=== PATIENT | male | born 1975 | race Caucasian/White ===

== ENCOUNTER 2024-08-19 09:39 | Emergency (ER) | payer BC, SELFPAY ==
[2024-08-19 09:40] VITALS: BP 134/87; PULSE 87; RESP 18; TEMP 36.7; O2SAT 98
[2024-08-19 09:57] VITALS: BP 134/87; PULSE 87; RESP 18; TEMP 36.7; O2SAT 98
--- NOTE | 2024-08-19 11:01 | W.ED.GENAD ---
Discharge Plan Disposition Patient Disposition: Home Discharge Details Clinical Impression: Corneal abrasion, Keratitis Primary Care Provider: Milana,Local ED Provider: Edita Kim Home Meds and New Rx's Prescriptions: Continued escitalopram oxalate 10 mg tablet 10 mg PO DAILY Discharge Instructions Instructions: Corneal Abrasion ED Additional Instructions: Please go directly to [address] Let the front counter clerk know you are here post emergency department visit Please return should you have new or worsening complaints Concern for possible keratitis and a very small corneal abrasion. however, given your recent cataract surgery and complex history including sarcoidosis I think it is prudent to have you evaluated by ophthalmology. Discharge Data Discharge Date/Time-TO BE ENTERED AT DEPARTURE: 08/19/24 11:22 HPI General Date/Time Provider Initiated Documentation: 08/19/24 10:22. HPI Narrative: This 49-year-old male with history of sarcoidosis and lungs and presenting in bilateral eyes presents with report of injury on Monday while hunting. He thought a branch hit the corner of his eye. He has had pain and drainage with injection since that time. Worse with blinking. Denies significant light sensitivity. Does not take immunosuppressive's for sarcoidosis. Initial presentation of sarcoidosis with uveitis per patient. Related Data Home Medications ?Medication ?Instructions ?Recorded ?Confirmed escitalopram oxalate 10 mg tablet 10 mg PO DAILY 08/19/24 08/19/24 Allergies Allergy/AdvReac Type Severity Reaction Status Date / Time No Known Allergies Allergy Unverified 08/19/24 10:04 General Stated Complaint: EyeProblem CORNELIO: 3 Exam Narrative Exam Narrative: Alert and oriented 49-year-old gentleman in no acute distress with injected cornea and conjunctiva, punctate uptake throughout cornea, small abrasion in the 1 o'clock position, mildly constricted pupil on the left slower to respond. Lids everted without evidence of foreign body. Negative Sg sign. Course Vital Signs Vital signs: Vital Signs Temperature 36.7 C 08/19/24 09:40 Pulse 87 08/19/24 09:40 Respiratory Rate 18 08/19/24 09:40 Blood Pressure 134/87 08/19/24 09:40 Pulse Oximetry 98 08/19/24 09:40 Temperature 36.7 C 08/19/24 09:57 Temperature Source Temporal Artery Scan 08/19/24 09:57 Pulse 87 08/19/24 09:57 Respiratory Rate 18 08/19/24 09:57 Respiratory Effort Normal, Non-Labored 08/19/24 10:03 Blood Pressure 134/87 08/19/24 09:57 Blood Pressure Position Sitting 08/19/24 09:40 Pulse Oximetry 98 08/19/24 09:57 Oxygen Delivery Method Room Air 08/19/24 09:57 Oxygen Flow Rate 0 08/19/24 09:57 Pain Level 5 08/19/24 09:57 Medical Decision Making 49-year-old gentleman with recent cataract surgery and complex history including that of sarcoidosis which presented with uveitis. Patient is visiting from [place] and given pain and injection of his left eye presents for assessment. Concern for possible keratitis with a small corneal abrasion. He is staying in [place] until 1130 and I think ophthalmology assessment given complexities of sarcoidosis and prior history is warranted at this time. I think patient will likely need an antibiotic but as [facility] is able to see patient today on 08/19/2024,i think it's reasonable to defer for ophthalmology recommendations. visual acuity reviewed. Patient discharged to [facility] at this time. Quality:SDOH Health Related Social Needs: No Data to Display PFSH All Active Problems (Updated 08/19/24 @ 11:03 by YOSVANY Jackson) Keratitis (Acute) Corneal abrasion (Acute) Social History Smoking/Tobacco Use Status: Never Smoking risk assessment performed?: Yes Alcohol Intake: never Substance use type: does not use
[2024-08-19] MEDS: Fluorescein STRIPS 100/BOX 1 MG (11:15)
[2024-08-19] MEDS: Tetracaine 0.5% 4 ML BTL (11:16)
[2024-08-19 11:17] VITALS: BP 148/99; PULSE 71; RESP 18; TEMP 36.6; O2SAT 99
--- NOTE | 2024-08-19 11:36 | NUR.NOTE ---
Provider note faxed to [facility] for continuing care. Nursing Note:
== END 2024-08-19 11:22 | disposition home or self-care (01) ==
PROVIDERS: Emergency Provider Physician Assistant
DX: S05.02XA Injury of conjunctiva and corneal abrasion without foreign body, left eye, initial encounter (principal); H16.9 Unspecified keratitis; Z98.42 Cataract extraction status, left eye; W20.8XXA Other cause of strike by thrown, projected or falling object, initial encounter
CPT/HCPCS: 99283